=== PATIENT | female | born 1970 | race Caucasian/White ===

== ENCOUNTER 2019-07-10 20:03 | Emergency (ER) | payer SELFPAY ==
[2019-07-10] MEDS ORDERED: Gentamicin 0.3% Ophth Soln 5 ML Bottle ONE (20:10)
--- NOTE | 2019-07-11 01:55 | ER ---
REASON FOR EMERGENCY ROOM VISIT: Redness and itching, both eyes. HISTORY: This 49-year-old woman came up here from 200 miles away with her significant other to go ice fishing. Since this afternoon, she has noticed increasing burning and itching involving; at first the left eye, followed by the right eye approximately 1 hour later. This continued throughout the afternoon and the evening. She does admit that she has never had anything like this before. She does state that the dog has been riding in the car with them all day and has been shedding a great deal. She did have a cold last week, but her symptoms have resolved as far as that is concerned. She has no past history of any eye problems. PAST MEDICAL HISTORY: 1. Lumbar disk surgery. 2. 2, para 3. MEDICATIONS: Only ibuprofen p.r.n. ALLERGIES: SHE DOES HAVE A HISTORY OF "HAY FEVER." REVIEW OF SYSTEMS: Pertinent positives and negatives as listed in the HPI. PHYSICAL EXAMINATION: HEENT: Both eyes have conjunctival injection. There are no exudates evident on the left side, but on the right side she has a tiny amount of exudate present along the medial canthus. No crusting is observed. Pupils are equally round and reactive to light. Oropharynx is normal. NECK: No adenopathy. CHEST: Clear to auscultation. CARDIAC: Regular rate without murmur. IMPRESSION: Conjunctivitis, bilateral; probably allergic in nature. PLAN: She is taking Visine allergy eyedrops which she started this afternoon. I encouraged her to try Zyrtec 10 mg p.o. daily. In addition, I gave her prescription for gentamicin ophthalmic eyedrops. She was instructed to apply two of these to each eye every 4 hours while awake for the next week. If her symptoms worsen, she should be seen again, and if they fail to resolve within a week, she should be seen again. All questions were answered. She understands and agrees with this plan. NIMO /[id number]
== END 2019-07-10 21:53 | disposition home or self-care (01) ==
LOC: LB.ED 20:03
DX: H10.9 Unspecified conjunctivitis (principal)
CPT/HCPCS: 99282; 99283; A9270-GY